=== PATIENT | male | born 1945 | race Caucasian/White ===

== ENCOUNTER 2018-05-14 05:40 | Day surgery (SDC) | payer OTHER, MEDICARE ==
[~2018-05-14] VITALS: Ht 182.9 cm; Wt 96.2 kg
[~2018-05-14 05:40] MED LIST: CILOXAN 0.100 DROP/5 BOTH EYES; POLYTRIM EYE DR10 ML BOTH EYES; PRED FORTE100 DROP/5 BOTH EYES; REFRESH LI300 DROP/1 BOTH EYES; SIMBRINZA 1%-0.28 ML BOTH EYES; TOPROL XL100 MG PO; XALATAN2.5 ML BOTH EYES
[2018-05-14 05:57] VITALS: BP 184/86
[2018-05-14 09:05] VITALS: BP 185/81
[2018-05-14 09:42] VITALS: BP 193/82
== END 2018-05-14 09:40 | disposition home or self-care (01) ==
LOC: SDC 05:40
DX: H35.341 Macular cyst, hole, or pseudohole, right eye (principal); H33.311 Horseshoe tear of retina without detachment, right eye; I49.9 Cardiac arrhythmia, unspecified; I10 Essential (primary) hypertension; E78.5 Hyperlipidemia, unspecified; Z82.49 Family history of ischemic heart disease and other diseases of the circulatory system
CPT/HCPCS: J0690; J3300